=== PATIENT | female | born 1950 | race Caucasian/White ===

== ENCOUNTER → 2017-05-31 | Outpatient (CLI) | payer MEDICARE, OTHER ==
[~2017-05-31] MED LIST: BABY81CH PO; CALCTAB22 PO; CELE1CAP9 PO; CELE50CA PO; CENTRUM SILVER PO; CLARITAN PO; MELATONIN PO; MULTCAP8 PO; PERCOCET PO; PERCTAB PO; PROAAER10 INH; PROAIR INHALER PO; QVAR INHALER PO; QVAR1AER2 IN; SENN15TA2 OR; SYNT100T OR; TRAM50TA2 OR; VICO5TAB OR; VIT D 2000 PO; [UNRECOGNIZED DRUG - OTHER]
--- NOTE | 2017-05-31 11:31 | REP ---
BILATERAL MAMMOGRAM: CLINICAL HISTORY: Breast cancer in paternal aunt and paternal grandmother. COMPARISON: 06/05/2015 as well as other prior exams. Scattered fibroglandular densities are for the most part unchanged. However there is a new 7 mm nodule in the lateral left breast measuring 7 mm in diameter. No other new mass or cluster microcalcifications are seen. IMPRESSION: There appears to be a new 7 mm nodule in the lateral left breast. I recommend spot compression views and ultrasound to further evaluate. BI-RADS/ACR category 0 mammogram, incomplete. Additional imaging and/or prior mammograms for comparison. This mammogram was interpreted with the aid of an FDA-approved computer-aided detection system. The patient states she/he had a clinical breast exam in 05/2017. The patient letter being requested is M0. Signed by Melvin Delatorre MD 05/31/2017 01:29 P
== END ==
LOC: M RAD 09:54
PROVIDERS: ATTEND Internal Medicine
DX: Z12.31 Encounter for screening mammogram for malignant neoplasm of breast (principal); R92.8 Other abnormal and inconclusive findings on diagnostic imaging of breast

== ENCOUNTER → 2017-06-13 | Outpatient (CLI) | payer MEDICARE, OTHER ==
--- NOTE | 2017-06-13 14:16 | REP ---
Digital diagnostic unilateral left breast mammography with CAD and focused left breast sonography: History: Screening mammography from May 31, 2017 was BI-RADS category 0 because of a nodular neodensity projecting laterally in the left breast. Diagnostic imaging was recommended. Comparison is also made with prior mammography from June 05, 2015 and April 30, 2014. Today's mammographic findings: Magnified focal spot compression CC, true ML, and MLO views of the left breast are obtained. These confirm the presence of a well-circumscribed 7 mm nodule in the inferior and lateral aspect of the left breast at approximately 4 o'clock position. No other suspicious mammographic findings. Sonographic findings: The left breast is scanned from 3 o'clock to 6 o'clock through the inferolateral quadrant. Fairly homogeneous background echotexture is seen. No cyst is seen. No mass is observed. A few slightly prominent ducts are seen retroareolar region. Impression: BI-RADS/ACR category 4 mammogram. Suspicious abnormality - biopsy should be considered. Usually requires biopsy. BI-RADS category 4 suspicious left breast imaging. A well-circumscribed 7 mm nodule inferolateral quadrant left breast with no sonographic correlate. This appears to be a new finding. Stereotactic needle biopsy recommended. This mammogram was interpreted with the aid of an FDA-approved computer-aided detection system. The patient states she/he had a clinical breast exam in May 2017. The patient letter being requested is M4. Signed by Walter Levine MD 06/13/2017 03:31 P
== END ==
LOC: M RAD 12:22
PROVIDERS: ATTEND Internal Medicine
DX: N63.0 Unspecified lump in unspecified breast (principal); J45.909 Unspecified asthma, uncomplicated; G47.30 Sleep apnea, unspecified; Z78.0 Asymptomatic menopausal state; E78.00 Pure hypercholesterolemia, unspecified
CPT/HCPCS: 76642; 93005; G0206

== ENCOUNTER → 2017-06-13 | Outpatient (CLI) | payer MEDICARE, OTHER ==
--- NOTE | 2017-06-13 14:34 | ECGEPIP ---
Stationary ECG Study [facility] Test Date: 2017-06-13 Pat Name: SABA LLOYD Department: Room: - Gender: F Home Care Rn: RUBEN : 1950 Requested By: NAOMI Callejas Order Number: [id number] Reading MD: Karyn Farris Measurements Intervals [place] Rate: 56 P: 29 DE: 141 QRS: -9 QRSD: 86 T: 2 QT: 416 QTc: 404 Interpretive Statements SINUS BRADYCARDIA Left axis deviation NO PRIOR Electronically Signed On 06-13-2017 14:33:54 EST by Karyn Farris
== END ==
LOC: M EKG 13:01
PROVIDERS: ATTEND Anesthesiology
DX: J45.909 Unspecified asthma, uncomplicated (principal); G47.30 Sleep apnea, unspecified; Z78.0 Asymptomatic menopausal state; E78.00 Pure hypercholesterolemia, unspecified

== ENCOUNTER 2017-06-16 09:21 | Day surgery (SDC) | payer MEDICARE, OTHER ==
[~2017-06-16] VITALS: Ht 162.6 cm; Wt 62.1 kg
[2017-06-16] MEDS ORDERED: LR 1,000 ML IV ONE (09:45)
[2017-06-16] MEDS ORDERED: PROPOFOL 200 MG/20 ML VIAL As Ordered ONE (11:08)
[2017-06-16] MEDS ORDERED: ONDANSETRON 4MG/2ML VIAL (J2405) As Ordered ONE (11:08)
[2017-06-16] MEDS ORDERED: LIDOCAINE 2% INJ 100 MG/5 ML SDV (FOR ANES.) As Ordered ONE (11:08)
[2017-06-16] MEDS ORDERED: METOCLOPRAMIDE INJ 10MG/2ML VIAL (J2765) As Ordered ONE (11:08)
[2017-06-16] MEDS ORDERED: MIDAZOLAM INJ 2 MG/2 ML VIAL (J2250) As Ordered ONE (11:09)
[2017-06-16] MEDS ORDERED: fentaNYL 100 MCG/2 ML INJECTION (J3010) As Ordered ONE (11:09)
[2017-06-16] MEDS ORDERED: KETOROLAC 60 MG/2 ML VIAL (J1885) As Ordered ONE (12:11)
[2017-06-16] MEDS ORDERED: LR 1,000 ML IV SCH ×2 (13:00)
[2017-06-16] MEDS ORDERED: NORCO, ANEXSIA 5/325MG TABLET (HYDROcodone/ACETAMINOPHEN) PO PRN (13:00)
[2017-06-16] MEDS ORDERED: IBUPROFEN 600 MG TAB PO PRN (13:00)
[2017-06-16] MEDS ORDERED: fentaNYL 100 MCG/2 ML INJECTION (J3010) IV PRN (13:00)
[2017-06-16] MEDS ORDERED: ONDANSETRON 4MG/2ML VIAL (J2405) IV PRN (13:00)
[2017-06-16 14:15] VITALS: BP 112/59
--- NOTE | 2017-06-16 18:10 | RO ---
DATE OF PROCEDURE: 06/16/2017 PREOPERATIVE DIAGNOSIS AND INDICATION FOR SURGERY: Postmenopausal bleeding, thickened endometrium by ultrasound and fibroids. POSTOPERATIVE DIAGNOSIS: Postmenopausal bleeding, thickened endometrium by ultrasound and fibroids with reassuring appearing endometrium and intermural fibroid. PROCEDURE: Hysteroscopy, dilatation and curettage, MyoSure resection. SURGEON: Dr. Rodriguez ANESTHESIA: Laryngeal mask anesthesia (LMA). BRIEF DESCRIPTION OF PROCEDURE AND FINDINGS: Annia was brought to the operating room where sufficient LMA anesthesia was induced. She was prepped, draped, and positioned in the usual fashion except for we positioned her while awake because of her lower back issues and were careful about that extra so and had her in a position that was comfortable before she was even anesthetized. We then prepped her and set up the scope and everything, emptied the bladder and using a single tooth tenaculum on the cervix, carefully dilated the cervix. She does have some left sided vaginal apical scarring that gives her a little dimple in the skin along the left side in the left lateral fornix. This is just scarring there. I do not know if that is post-obstetric or what but it gives her the initial look of didelphys but when you open the space a little more with the retractor you can see that there is actually cervix in the midline and on the left there is just a fold of tissue and there is no actual depth behind that little dimple. There is no cervix around, just vaginal tissues. It looks like she is scarred and there is a little sort of pucker where it healed, perhaps with a little apical tear that is what makes me think that it is possibly post-obstetric. I doubt that it would be symptomatic for her. We had no difficulty dilating the cervix. We were able to place the hysteroscope and see a normal endometrial cavity with both ostia clearly seen and normal. There is a little bit of friability to posterior endometrium consistent with her history of bleeding. We went ahead with the MyoSure and resected it especially since the patient said that there is a really unpleasant smell to this bleeding and she has a sense or feel that there is necrotic tissue there. We were very careful to get a good sample. Posteriorly we could feel an area in the mid posterior fundus that has the texture consistent with a fibroid. It did not appear worth digging in there. There is no projection of this until we shaved down the endometrium around it and then we could feel it but it is clearly not causing any rubbing or difficulty on the wall opposite it. I do not think that this is really related, rather there is a friability in the mid posterior of the endometrium itself and we went ahead and resected all of that and gathered that for our sample. Under direct visualization we also sampled anteriorly and essentially a 360 degree sample but were careful to get the area that looked a little more friable even though there did not appear to be any hypertrophy or overgrowth there. We also carried out curettage after the MyoSure resection and then the procedure was ended. ESTIMATED BLOOD LOSS FOR PROCEDURE: Less than 5 mL. FLUID REPLACEMENT: Crystalloid. COMPLICATIONS: None. CONDITION AND DISPOSITION: Luz tolerated the procedure well and was recovering in the recovery room in good condition.
== END 2017-06-16 14:25 | disposition home or self-care (01) ==
LOC: M SDC 09:21
PROVIDERS: ATTEND Obstetrics & Gynecology
DX: N95.0 Postmenopausal bleeding (principal); N85.00 Endometrial hyperplasia, unspecified; D25.1 Intramural leiomyoma of uterus; E03.9 Hypothyroidism, unspecified; J45.909 Unspecified asthma, uncomplicated; E78.00 Pure hypercholesterolemia, unspecified; G47.33 Obstructive sleep apnea (adult) (pediatric); E16.2 Hypoglycemia, unspecified; M54.2 Cervicalgia; J30.9 Allergic rhinitis, unspecified; Z91.09 Other allergy status, other than to drugs and biological substances; Z79.899 Other long term (current) drug therapy
CPT/HCPCS: 58558; 88305; J1885; J2250; J2405; J2765; J3010

== ENCOUNTER → 2017-06-17 | Outpatient (CLI) | payer MEDICARE, OTHER ==
[~2017-06-17] MED LIST changes: +LIDOCAINE 1% MDV 20ML VIAL As Ordered ONE
--- NOTE | 2017-06-17 15:11 | REP ---
Digital diagnostic unilateral left breast mammography with CAD: Two views. History: Marker clip placement mammogram. The patient status post stereotactic needle biopsy left breast for a nodular density. Comparison mammography June 13, 2017. Findings: The marker clip is in good position. There is a fairly large hematoma visible in the left breast post biopsy. This measures 7 cm in greatest diameter. The biopsy target is no longer visible. Impression: Marker clip in good position. Large post biopsy hematoma. This mammogram was interpreted with the aid of an FDA-approved computer-aided detection system. Signed by Walter Levine MD 06/17/2017 04:32 P
--- NOTE | 2017-06-17 18:19 | REP ---
STEREOTACTIC LEFT BREAST BIOPSY: The procedure was performed under the direct supervision of Dr. Levine. The patient has a history of a well circumscribed 7 mm nodule in the inferolateral quadrant of the left breast seen on a previous mammogram dated 06/13/2017. The risks and benefits of the procedure were explained to the patient and informed consent was obtained. A lateral medial approach was utilized. The left breast nodule was localized using stereotactic mammographic guidance. The skin was prepped and draped in a sterile fashion. 1% Xylocaine was used as a local anesthetic. An 8-gauge suction assisted mammotome needle was inserted and 6 core biopsy samples were obtained. A marker clip was placed at the biopsy site. Postprocedure, the patient did have some bleeding and I held pressure for a few minutes. The bleeding appeared to have slowed down. The nurse then held the pressure for approximately 10 minutes. The patient did however develop a hematoma. Dr. Levine then held pressure for another 20 minutes. However the patient's hematoma still seemed to be getting bigger. The patient was then placed in the mammogram paddle and compression was held for approximately [address] Mensah was consulted and came and saw the patient at the time of the procedure. After 20 minutes compression was released and the bleeding appeared to have stopped. After the appropriate amount of monitored convalescence the patient was discharged from the department. The patient will follow up with Dr. Mensah.
== END ==
LOC: M RADPRO 12:16
PROVIDERS: ATTEND Internal Medicine
DX: R92.8 Other abnormal and inconclusive findings on diagnostic imaging of breast (principal); L76.22 Postprocedural hemorrhage of skin and subcutaneous tissue following other procedure; Z79.899 Other long term (current) drug therapy; Z91.048 Other nonmedicinal substance allergy status

== ENCOUNTER → 2017-06-22 | Outpatient (CLI) | payer MEDICARE, OTHER ==
[~2017-06-22] MED LIST changes: -LIDOCAINE 1% MDV 20ML VIAL As Ordered ONE
[2017-06-22 16:26] LABS: FREE T4 1.21 NG/DL (0.76-1.46)
== END ==
LOC: M LAB 15:09
PROVIDERS: ATTEND Nurse Practitioner Family
DX: E06.3 Autoimmune thyroiditis (principal); E55.9 Vitamin D deficiency, unspecified

== ENCOUNTER → 2018-11-15 | Outpatient (CLI) | payer MEDICARE, OTHER ==
[~2018-11-15] MED LIST changes: +OXYC1TAB23 PO; -PERCOCET PO; -QVAR1AER2 IN; +QVAR80AE10 IN
--- NOTE | 2018-11-15 13:29 | REPMRS ---
Patient History The patient states she had a clinical breast exam in April 2018. Family history of breast cancer in paternal aunt, breast cancer in paternal grandmother. Benign stereotatic loc for ea lesion of the left breast, June 17, 2017. Benign lumpectomy of the right breast. 3D TOMOSYNTHESIS WAS PERFORMED. Digital Mammo Screening Bilat: November 15, 2018 - Exam #: [id number] Bilateral CC and MLO view(s) were taken. Technologist: Nellie Carrillo, Technologist Prior study comparison: June 13, 2017, left breast digital mammo diagnostic unilateral performed at [facility]. May 31, 2017, bilateral digital mammo screening bilat performed at [facility]. FINDINGS: There are scattered fibroglandular densities. There is a fairly symmetric fibroglandular pattern in both breasts. There has been no interval development of masses, areas of architectural distortion or clusters of microcalcifications typical of malignancy. Assessment: BI-RADS/ACR category 2 mammogram. Benign Findings. Recommendation Routine screening mammogram of both breasts in 1 year (for women over age 40). This mammogram was interpreted with the aid of an FDA-approved computer-aided dectection system. Electronically Signed By: Melvin Delatorre MD 11/15/18 0638
== END ==
LOC: M RAD 10:54
PROVIDERS: ATTEND Obstetrics & Gynecology
DX: Z12.31 Encounter for screening mammogram for malignant neoplasm of breast (principal); Z86.018 Personal history of other benign neoplasm

== ENCOUNTER → 2020-03-28 | Outpatient (CLI) | payer MEDICARE, OTHER ==
[~2020-03-28] MED LIST changes: +BREO1INH3 INH; +ESTR1MIS PV; +LEVO112T2 PO
== END ==
LOC: M LABSMTC 11:52
PROVIDERS: ATTEND Anesthesiology
DX: Z11.59 Encounter for screening for other viral diseases (principal)
CPT/HCPCS: C9803; U0003

== ENCOUNTER 2020-04-02 06:47 | Day surgery (SDC) | payer MEDICARE, OTHER ==
[~2020-04-02] VITALS: Ht 162.6 cm; Wt 66.6 kg
[2020-04-02] MEDS ORDERED: propofoL 200 MG/20 ML VIAL As Ordered ONE (07:19)
[2020-04-02] MEDS ORDERED: LIDOCAINE 2% 100MG/5ML SDV (FOR ANES.) As Ordered ONE (07:19)
[2020-04-02] MEDS ORDERED: NS 1,000 ML IV ONE (07:30)
--- NOTE | 2020-04-02 07:52 | ROOR ---
Patient Name: Annia Moffett Procedure Date: 04/02/2020 7:27 AM Date of : 1950 Age: 69 Room: [facility] Gender: Female Note Status: Finalized Procedure: Total Colonoscopy to Cecum + Cold Snare Polypectomy + Hemoclips Indications: Screening for colorectal malignant neoplasm Providers: Maury Rhoades MD Referring MD: Anselmo Harris MD Requesting Provider: Medicines: Monitored Anesthesia Care Complications: No immediate complications. Procedure: Pre-Anesthesia Assessment: - The heart rate, respiratory rate, oxygen saturations, blood pressure, adequacy of pulmonary ventilation, and response to care were monitored throughout the procedure. The Colonoscope was introduced through the anus and advanced to the cecum, identified by appendiceal orifice and ileocecal valve. The colonoscopy was performed without difficulty. The patient tolerated the procedure well. The quality of the bowel preparation was excellent. Findings: The perianal and digital rectal examinations were normal. Non-bleeding internal hemorrhoids were found during retroflexion. The hemorrhoids were small and Grade I (internal hemorrhoids that do not prolapse). Multiple small and large-mouthed diverticula were found in the recto-sigmoid colon, sigmoid colon and descending colon. A small polyp was found in the mid ascending colon. The polyp was sessile. The polyp was removed with a cold snare. Resection and retrieval were complete. To prevent bleeding after the polypectomy, two hemostatic clips were successfully placed (MR conditional). There was no bleeding at the end of the procedure. The exam was otherwise without abnormality on direct and retroflexion views. Impression: - Non-bleeding internal hemorrhoids. - Diverticulosis in the recto-sigmoid colon, in the sigmoid colon and in the descending colon. - One small polyp in the mid ascending colon, removed with a cold snare. Resected and retrieved. Clips (MR conditional) were placed. - The examination was otherwise normal on direct and retroflexion views. - The exam was otherwise normal to the cecum. Recommendation: - Patient has a contact number available for emergencies. The signs and symptoms of potential delayed complications were discussed with the patient. Return to normal activities tomorrow. Written discharge instructions were provided to the patient. - High fiber diet. - Discharge patient to home. - Continue present medications. - Await pathology results. - Telephone GI clinic for pathology results in 1 week. - Repeat colonoscopy for surveillance based on pathology results. - Return to referring physician. - The findings and recommendations were discussed with the patient. Maury Rhoades MD Maury Rhoades MD 04/02/2020 7:51:46 AM Electronically signed by Maury Rhoades MD Number of Addenda: 0 Note Initiated On: 04/02/2020 7:27 AM Estimated Blood Loss: Estimated blood loss: none.
[2020-04-02 08:25] VITALS: BP 109/57
== END 2020-04-02 08:27 | disposition home or self-care (01) ==
LOC: M OPP 06:47
PROVIDERS: ATTEND Internal Medicine Gastroenterology
DX: Z12.11 Encounter for screening for malignant neoplasm of colon (principal); Z86.010 Personal history of colon polyps; D12.2 Benign neoplasm of ascending colon; K57.30 Diverticulosis of large intestine without perforation or abscess without bleeding; K64.0 First degree hemorrhoids; Z79.899 Other long term (current) drug therapy

== ENCOUNTER → 2020-05-02 | Outpatient (CLI) | payer MEDICARE, OTHER | LOC: M LABSMTC 11:35 | PROVIDERS: ATTEND Orthopaedic Surgery | DX: Z01.812 Encounter for preprocedural laboratory examination (principal); Z20.828 Contact with and (suspected) exposure to other viral communicable diseases ==

== ENCOUNTER → 2020-05-19 | Outpatient (CLI) | payer MEDICARE, OTHER ==
--- NOTE | 2020-05-19 09:42 | REP ---
INDICATION: OTH SYMP/SIGNS INVOLVING CIR COMPARISON: None. TECHNIQUE: Real-time ultrasound evaluation and duplex Doppler interrogation of the extracranial carotid vasculature is performed. FINDINGS: There is minimal plaquing and narrowing in both carotid bulbs extending into the internal and external carotid arteries. Luminal narrowing is less than 50%. There is no evidence of hemodynamically significant stenosis of either internal carotid artery. Normal flow velocities are seen. The vertebral arteries demonstrate normal direction of flow. RIGHT LEFT Peak systolic velocity ICA 74.7 cm/s 69.5 cm/s End diastolic velocity ICA 27.1 cm/s 27.2 cm/s Peak systolic velocity CCA 103.9 cm/s 104.1cm/s Peak systolic velocity ECA 84.1 cm/s 76.4 cm/s ICA/CCA ratio 0.72 0.67 IMPRESSION: Bilateral luminal narrowing of the internal carotid arteries less than 50%. No evidence of hemodynamically significant stenosis. <Electronically signed by Melvin Delatorre > 05/19/20 0938
== END ==
LOC: M RAD 08:59
PROVIDERS: ATTEND Internal Medicine Cardiovascular Disease
DX: R09.89 Other specified symptoms and signs involving the circulatory and respiratory systems (principal)

== ENCOUNTER → 2020-05-21 | Outpatient (CLI) | payer MEDICARE, OTHER ==
--- NOTE | 2020-05-21 14:35 | REPMRS ---
Patient History The patient states she had a clinical breast exam in 2019. Patient is postmenopausal. Family history of breast cancer in paternal aunt, breast cancer in paternal grandmother. Benign stereotatic loc for ea lesion of the left breast, June 17, 2017. Benign lumpectomy of the right breast. Taking estrogen for 1 year. 3D TOMOSYNTHESIS WAS PERFORMED. [facility] Volpara breast density b. Digital Woman Screen Mammo: May 21, 2020 - Exam #: [id number] Bilateral CC and MLO view(s) were taken. Technologist: Nellie Carrillo, Technologist Prior study comparison: November 15, 2018, bilateral digital mammo screening bilat, performed at [facility]. June 13, 2017, left breast digital mammo diagnostic unilateral, performed at [facility]. FINDINGS: There are scattered fibroglandular densities. There has been no change in the appearance of the mammogram from the prior studies. There is a mild amount of residual fibroglandular tissue which is fairly symmetric. There is no interval development of dominant mass, architectural distortion, or clustered microcalcification suggestive of malignancy. Assessment: BI-RADS/ACR category 1 mammogram. Negative Mammogram. Recommendation Routine screening mammogram in 1 year (for women over age 40). This mammogram was interpreted with the aid of an FDA-approved computer-aided dectection system. Electronically Signed By: Melvin Delatorre MD 05/21/20 [id number]
== END ==
LOC: M WHC 11:23
PROVIDERS: ATTEND Obstetrics & Gynecology
DX: Z12.31 Encounter for screening mammogram for malignant neoplasm of breast (principal)

== ENCOUNTER → 2020-05-29 | Outpatient (CLI) | payer MEDICARE, OTHER | LOC: M LABSMTC 10:17 | PROVIDERS: ATTEND Orthopaedic Surgery | DX: Z01.812 Encounter for preprocedural laboratory examination (principal); Z20.828 Contact with and (suspected) exposure to other viral communicable diseases ==

== ENCOUNTER → 2020-06-16 | Outpatient (CLI) | payer MEDICARE, OTHER ==
--- NOTE | 2020-06-16 10:20 | REP ---
INDICATION: SOLITRAY PULMONARY NODULE COMPARISON: Outside examination dated 02/28/2020 TECHNIQUE: Axial noncontrast images from the thoracic inlet to the upper abdomen with coronal and sagittal reformations. This CT examination was performed using the following dose reduction techniques: Automated exposure control, adjustment of mA and/or kv according to the patient's size, and use of iterative reconstruction technique. FINDINGS: The bilateral lung casillas are relatively well aerated with minimal linear bibasilar fibroatelectatic changes again noted. Minimal scattered scarring is also identified and stable. The previously noted 1.2 cm right perihilar nodule inseparable from the segmental right lower lobe pulmonary artery is difficult to identify due to the lack of contrast but may be decreased in size as compared to prior examination. No further consolidation, suspicious nodule or mass lesion. No adenopathy. Atherosclerotic changes to the thoracic aorta and coronary arteries noted without aortic aneurysm or cardiomegaly. No pericardial effusion. Small hiatal hernia at the gastroesophageal junction noted. Limited upper abdomen demonstrates normal bilateral adrenal glands. Musculoskeletal structures are intact. IMPRESSION: 1. The previously identified 1.2 cm right infrahilar nodule is difficult to definitively identify due to the lack of intravenous contrast but may be smaller in size. 2. Bibasilar fibroatelectatic changes and minimal scattered scarring similar to prior examination. 3. No new acute mediastinal or pleuroparenchymal process appreciated. <Electronically signed by Reynaldo Schrader > 06/16/20 [id number]
== END ==
LOC: M RAD 09:18
PROVIDERS: ATTEND Internal Medicine Pulmonary Disease
DX: R91.1 Solitary pulmonary nodule (principal)

== ENCOUNTER → 2020-12-24 | Outpatient (CLI) | payer MEDICARE, OTHER ==
--- NOTE | 2020-12-24 11:07 | REP ---
INDICATION: SOLITARY PULMONARY NODULE/LABS 1ST COMPARISON: 02/28/2020 from an outside institution TECHNIQUE: Noncontrast enhanced standard helical technique FINDINGS: The mediastinum and pulmonary giuliana are essentially unchanged. There is no evidence of a mass or adenopathy. The imaged upper abdomen is unchanged. No abnormalities are noted. The imaged osseous structures are within normal limits. Evaluation of the lung casillas shows no new abnormal nodules, masses, or opacities. The nodule seen previously in the right lower lobe reportedly measuring 1.2 cm does not appear to be significantly changed, however, that prior exam was a contrast-enhanced exam which can better differentiate vascular structures from nodules. IMPRESSION: Although the examinations are technically different as described above, I see no significant change. If an exact comparison between the examinations is of clinical concern then a contrast-enhanced chest CT would be in order. <Electronically signed by Moses Arriola > 12/24/20 1101
== END ==
LOC: M RAD 08:48
PROVIDERS: ATTEND Internal Medicine Pulmonary Disease
DX: R91.1 Solitary pulmonary nodule (principal); E78.00 Pure hypercholesterolemia, unspecified

== ENCOUNTER → 2020-12-24 | Outpatient (CLI) | payer MEDICARE, OTHER ==
[2020-12-24 15:55] LABS: ALBUMIN 3.9 GM/DL (3.2-5.2); ALT/SGPT 26 U/L (12-78); BILIRUBIN,TOTAL 0.6 MG/DL (0.2-1.0); BLOOD UREA NITROGEN 18 MG/DL (7-18); CALCIUM LEVEL 9.5 MG/DL (8.8-10.2); CARBON DIOXIDE LEVEL 30 MEQ/L (21-32); CHLORIDE LEVEL 103 MEQ/L (98-107); CHOLESTEROL LEVEL 177 MG/DL (<200); CHOLESTEROL RISK RATIO 2.011 (<5); GLOMERULAR FILTRATION RATE > 60.0 (>39); GLUCOSE, FASTING 72 MG/DL (70-100); HDL CHOLESTEROL 88 MG/DL (>40); LDL CHOLESTEROL 73 MG/DL (<100); NON-HDL-C 89 MG/DL; POTASSIUM SERUM 4.4 MEQ/L (3.5-5.1); SODIUM LEVEL 139 MEQ/L (136-145); TOTAL PROTEIN 7.4 GM/DL (6.4-8.2); TRIGLYCERIDES LEVEL 82 MG/DL (<150)
== END ==
LOC: M LAB 09:02
PROVIDERS: ATTEND Internal Medicine
DX: E78.00 Pure hypercholesterolemia, unspecified (principal)

== ENCOUNTER → 2021-06-23 | Outpatient (CLI) | payer MEDICARE, OTHER ==
[2021-06-23 12:01] LABS: CALCIUM LEVEL 9.4 MG/DL (8.8-10.2); FREE T4 1.22 NG/DL (0.76-1.46); THYROID STIMULATING HORMONE 0.432 uIU/ML (0.358-3.740)
[2021-06-23 13:20] LABS: TOTAL 25(OH) VITAMIN D 26.1 NG/ML (30.0-100.0)
== END ==
LOC: M LAB 10:16
PROVIDERS: ATTEND Internal Medicine Endocrinology, Diabetes & Metabolism
DX: E06.3 Autoimmune thyroiditis (principal); E55.9 Vitamin D deficiency, unspecified; M85.89 Other specified disorders of bone density and structure, multiple sites

== ENCOUNTER → 2021-06-23 | Outpatient (CLI) | payer MEDICARE, OTHER ==
--- NOTE | 2021-06-23 12:52 | REPVR ---
PROCEDURE INFORMATION: Exam: CT Chest Without Contrast; Diagnostic Exam date and time: 06/23/2021 10:17 AM Age: 70 years old Clinical indication: Condition or disease; Lung condition and disease; Pulmonary nodule, solitary TECHNIQUE: Imaging protocol: Diagnostic computed tomography of the chest without contrast. 3D rendering (Not supervised by radiologist): MIP and/or 3D reconstructed images were created by the technologist. Radiation optimization: All CT scans at this facility use at least one of these dose optimization techniques: automated exposure control; mA and/or kV adjustment per patient size (includes targeted exams where dose is matched to clinical indication); or iterative reconstruction. COMPARISON: CT Chest without contrast 12/24/2020 9:25 AM The prior report is not available for correlation at the time of interpretation. FINDINGS: Lungs: Hyperinflation, interstitial prominence, and bibasilar parenchymal stranding. Pleural spaces: No pleural effusion. Heart: No cardiomegaly. Aorta: Calcification and ectasia of the thoracic aorta. Lymph nodes: Subcentimeter lymph nodes. Mediastinum Small hiatal hernia. Bones/joints: Degenerative change and mild scoliosis. Soft tissues: Punctate metallic density in the left breast. IMPRESSION: 1. Hyperinflation, interstitial prominence, and bibasilar parenchymal stranding. 2. Additional findings as described above. Electronically signed by: Francisco Garza On 06/23/2021 12:52:10 PM
== END ==
LOC: M RAD 09:47
PROVIDERS: ATTEND Internal Medicine Pulmonary Disease
DX: R91.1 Solitary pulmonary nodule (principal)

== ENCOUNTER → 2021-06-23 | Outpatient (CLI) | payer MEDICARE, OTHER ==
[2021-06-26 16:12] LABS: G003-IGE ORCHARD GRASS <0.10 kU/L (Class 0); G006-IGE TIMOTHY GRASS <0.10 kU/L (Class 0); IGE HICKORY, WHITE <0.10 kU/L (Class 0); T001-IGE MAPLE/BOX ELDER <0.10 kU/L (Class 0); T003-IGE COMMON SILVER BIRCH <0.10 kU/L (Class 0); T005-IGE BEECH (AMERICAN) <0.10 kU/L (Class 0); T007-IGE OAK, WHITE 0.11 kU/L (Class 0/I); T008-IGE ELM, AMERICAN WHITE <0.10 kU/L (Class 0); T014-IGE COTTONWOOD <0.10 kU/L (Class 0); T015-IGE ASH, WHITE <0.10 kU/L (Class 0); T016-IGE PINE, WHITE <0.10 kU/L (Class 0)
== END ==
LOC: M LAB 09:50
PROVIDERS: ATTEND Allergy & Immunology Allergy
DX: J30.1 Allergic rhinitis due to pollen (principal); R91.1 Solitary pulmonary nodule; E06.3 Autoimmune thyroiditis; E55.9 Vitamin D deficiency, unspecified; M85.89 Other specified disorders of bone density and structure, multiple sites

== ENCOUNTER → 2021-10-05 | Outpatient (CLI) | payer MEDICARE, OTHER | LOC: M WHC 15:31 | PROVIDERS: ATTEND Internal Medicine | DX: Z12.31 Encounter for screening mammogram for malignant neoplasm of breast (principal) ==

== ENCOUNTER → 2021-12-16 | Outpatient (CLI) | payer MEDICARE, OTHER | LOC: M PLAIMG 10:04 | PROVIDERS: ATTEND Internal Medicine Pulmonary Disease | DX: R91.1 Solitary pulmonary nodule (principal) ==

== ENCOUNTER → 2022-10-14 | Outpatient (CLI) | payer MEDICARE, OTHER | LOC: M WHC 12:31 | PROVIDERS: ATTEND Obstetrics & Gynecology | DX: Z12.31 Encounter for screening mammogram for malignant neoplasm of breast (principal) ==

== ENCOUNTER → 2022-10-27 | Outpatient (CLI) | payer MEDICARE, OTHER | LOC: M SLEEP 20:00 | PROVIDERS: ATTEND Internal Medicine Pulmonary Disease | DX: G47.33 Obstructive sleep apnea (adult) (pediatric) (principal) ==

== ENCOUNTER 2022-12-07 09:37 | Day surgery (SDC) | payer MEDICARE, OTHER ==
[~2022-12-07] VITALS: Ht 161.3 cm; Wt 67.1 kg
[~2022-12-07 09:37] MED LIST changes: +ASCO500C3 PO; +ATOR1TAB21 PO; +D200CAP3 PO; +LEVO100T5 PO; +PROA1AER2 IN; +VITATAB73 PO
[2022-12-07] MEDS ORDERED: MIDAZOLAM INJ 2MG/2ML VIAL As Ordered ONE (10:42)
[2022-12-07] MEDS ORDERED: propofoL 200 MG/20 ML VIAL As Ordered ONE (10:42)
[2022-12-07 11:20] VITALS: BP 113/70
== END 2022-12-07 11:30 | disposition home or self-care (01) ==
LOC: M OPP 09:37
PROVIDERS: ATTEND Internal Medicine Gastroenterology
DX: Z12.11 Encounter for screening for malignant neoplasm of colon (principal); Z86.010 Personal history of colon polyps; Z80.0 Family history of malignant neoplasm of digestive organs; K63.5 Polyp of colon; K57.30 Diverticulosis of large intestine without perforation or abscess without bleeding; K64.8 Other hemorrhoids; Z79.02 Long term (current) use of antithrombotics/antiplatelets; Z79.51 Long term (current) use of inhaled steroids; Z88.1 Allergy status to other antibiotic agents
CPT/HCPCS: 45385; 88305; J2250

== ENCOUNTER → 2023-03-09 | Outpatient (CLI) | payer MEDICARE, OTHER ==
[~2023-03-09] MED LIST changes: -ESTR1MIS PV; +ESTR1VAG3 PV
== END ==
LOC: M RAD 08:30
PROVIDERS: ATTEND Otolaryngology
DX: J34.2 Deviated nasal septum (principal)

== ENCOUNTER → 2023-05-06 | Outpatient (CLI) | payer MEDICARE, OTHER ==
[~2023-05-06] MED LIST changes: +CELE0.09 PO; -CELE1CAP9 PO
== END ==
LOC: M LAB 10:21
PROVIDERS: ATTEND Internal Medicine Endocrinology, Diabetes & Metabolism
DX: M85.89 Other specified disorders of bone density and structure, multiple sites (principal)

== ENCOUNTER → 2023-05-24 | Outpatient (CLI) | payer MEDICARE, OTHER | LOC: M RAD 14:42 | PROVIDERS: ATTEND Otolaryngology | DX: R22.1 Localized swelling, mass and lump, neck (principal) ==

== ENCOUNTER → 2023-10-27 | Outpatient (CLI) | payer MEDICARE, OTHER | LOC: M WHC 13:11 | PROVIDERS: ATTEND Obstetrics & Gynecology | DX: Z12.31 Encounter for screening mammogram for malignant neoplasm of breast (principal) ==

== ENCOUNTER → 2025-03-06 | Outpatient (CLI) | payer MEDICARE, OTHER | LOC: M WHC 12:03 | PROVIDERS: ATTEND Obstetrics & Gynecology | DX: Z12.31 Encounter for screening mammogram for malignant neoplasm of breast (principal) ==

== ENCOUNTER → 2025-03-11 | Outpatient (CLI) | payer MEDICARE, OTHER | LOC: M WHC 12:45 | PROVIDERS: ATTEND Obstetrics & Gynecology | DX: R92.2 Inconclusive mammogram (principal) | CPT/HCPCS: 76642; 77065; G0279 ==